=== PATIENT | male | born 1955 | race Caucasian/White ===

== ENCOUNTER 2018-01-01 16:07 | Emergency (ER) | payer OTHER, BC ==
[~2018-01-01] VITALS: Ht 180.3 cm; Wt 127.0 kg
[~2018-01-01 16:07] MED LIST: ADVA250A INH; DUONSOL2 NEB; GLUCTAB PO; LOSA50TA PO; PERC5TAB12 PO; TIOT18I INH
[2018-01-01 16:09] VITALS: BP 176/83; PULSE 83; RESP 18; TEMP 98.2; O2SAT 98
[2018-01-01] MEDS ORDERED: METF1000 PO (16:27)
[2018-01-01] MEDS ORDERED: LOSA50TA PO (16:27)
[2018-01-01] MEDS ORDERED: inhaler (16:27)
[2018-01-01] MEDS ORDERED: SODIUM CHLORIDE 0.9% FLUSH 10 ML FLUSH IVF PRN (16:45)
[2018-01-01] MEDS ORDERED: MORPHINE SULFATE 2 MG/ML INJ IV PUSH ONE (16:45)
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
[2018-01-01 18:13] LABS: AUTOMATED NEUTROPHIL # 7.8 TH/MM3 (1.8-7.7); BASOPHIL % 0.4 % (0.0-2.0); EOSINOPHIL # 0.3 TH/MM3 (0-0.4); EOSINOPHIL % 2.6 % (0.0-4.0); HEMATOCRIT 41.5 % (39.0-51.0); HEMOGLOBIN 14.3 GM/DL (13.0-17.0); LYMPH % 15.5 % (9.0-44.0); LYMPHOCYTE # 1.6 TH/MM3 (1.0-4.8); MEAN CELL VOLUME 87.7 FL (80.0-100.0); MEAN CORPUSCULAR HEMOGLOBIN 30.3 PG (27.0-34.0); MEAN CORPUSCULAR HGB CONC 34.6 % (32.0-36.0); MEAN PLATELET VOLUME 8.3 FL (7.0-11.0); MONOCYTE # 0.7 TH/MM3 (0-0.9); NEUT % 74.5 % (16.0-70.0); PLATELET COUNT 210 TH/MM3 (150-450); RED BLOOD COUNT 4.74 MIL/MM3 (4.50-5.90); RED CELL DISTRIBUTION WIDTH 14.2 % (11.6-17.2); WHITE BLOOD COUNT 10.5 TH/MM3 (4.0-11.0)
[2018-01-01 18:19] LABS: ALBUMIN 3.5 GM/DL (3.4-5.0); ALT (GPT) 58 U/L (12-78); AST (GOT) 26 U/L (15-37); BICARBONATE 26.9 MEQ/L (21.0-32.0); BLOOD UREA NITROGEN 8 MG/DL (7-18); CALCIUM 8.5 MG/DL (8.5-10.1); CHLORIDE 109 MEQ/L (98-107); CREATININE 0.71 MG/DL (0.60-1.30); GLOMERULAR FILTRATION RATE 113 ML/MIN (>89); GLUCOSE,RANDOM 111 MG/DL (74-106); SODIUM (NA) 141 MEQ/L (136-145)
[2018-01-01 18:23] LABS: ALKALINE PHOSPHATASE 83 U/L (45-117); TOTAL BILIRUBIN ADULT 0.5 MG/DL (0.2-1.0); TOTAL PROTEIN 6.5 GM/DL (6.4-8.2); TROPONIN I LESS THAN 0.02 NG/ML (0.02-0.05)
[2018-01-01] MEDS ORDERED: NAPR500 PO (18:28)
[2018-01-01] MEDS ORDERED: CYCL10TA PO (18:28)
[2018-01-01 18:34] LABS: PROTHROMBIN TIME - PATIENT 10.6 SEC (9.8-11.6)
--- NOTE | 2018-01-02 12:16 | EKG ---
Date Performed: 01/01/2018 Time Performed: 17:40:13 PTAGE: 62 years EKG: Sinus rhythm INCOMPLETE RIGHT BUNDLE BRANCH BLOCK BORDERLINE ECG PREVIOUS TRACING : 05/21/2014 06.53 Since the prior tracing, there has been no significant german DOCTOR: Edson Alarcon Interpretating Date/Time 01/02/2018 12:14:40
== END 2018-01-01 19:22 | disposition home or self-care (01) ==
LOC: NEPC 16:07
DX: R07.89 Other chest pain (principal); I10 Essential (primary) hypertension; J44.9 Chronic obstructive pulmonary disease, unspecified; E11.9 Type 2 diabetes mellitus without complications; V49.50XA Passenger injured in collision with unspecified motor vehicles in traffic accident, initial encounter; Z88.0 Allergy status to penicillin; Z79.84 Long term (current) use of oral hypoglycemic drugs; Z79.899 Other long term (current) drug therapy
CPT/HCPCS: 71046; 80053; 84484; 85025; 85610; 85730; 93005; 96374; 99285; J2270